=== PATIENT | female | born 1935 | race Caucasian/White ===

== ENCOUNTER 2021-02-24 23:48 | Inpatient (IN) | payer OTHER ==
[~2021-02-24] VITALS: Ht 160 cm; Wt 71.0 kg
[~2021-02-24 23:48] MED LIST: BENAZEPRIL HCL40 MG PO; CEPHALEXIN250 MG PO; ELIQUIS5 MG PO; EZETIMIBE10 MG PO; FEOSOL325 M1 PO; LOVENOX120 MG/0.8 SC; PANTOPRAZOLE SO40 MG PO; PROBIOTIC1 EAC1 PO; TURMERIC500 M1 PO; VITAMIN E1000 UNI2 PO; ZETIA10 MG PO
[2021-02-25] MEDS ORDERED: ASPIRIN EC81 MG PO (00:32)
[2021-02-25] MEDS ORDERED: VIT D3 PO (00:34)
[2021-02-25] MEDS ORDERED: VITAMIN C PO (00:35)
[2021-02-25 06:43] LABS: BASOPHIL 0.4 % (0-2); HCT 36.5 % (37.0-47.0); HGB 11.5 g/dl (12.5-16.0); LYMPHOCYTE 34.7 % (15-48); MCH 27.7 pg (25.0-31.0); MCHC 31.5 g/dL (32.0-36.0); MONOCYTE 11.4 % (0-12); MPV 9.8 fL (6.0-9.5); NEUTROPHIL 51.1 % (41-80); NRBC 0; PLT 153 K/uL (150-400); RBC 4.15 M/uL (4.20-5.40); RDW 14.8 % (11.5-14.0); WBC 4.5 K/uL (4.0-10.5)
[2021-02-25 06:55] LABS: INR 1.12 (0.9-1.2); PROTHROMBIN TIME 13.8 SECONDS (11.8-13.4)
[2021-02-25 06:59] LABS: BILIRUBIN - TOTAL 0.8 mg/dL (0.2-1.0); BUN/CREAT RATIO (CALC) 12.5 RATIO; CREATININE 0.64 mg/dL (0.51-0.95); GLOBULIN (CALCULATION) 3.9 g/dL; MAGNESIUM 2.1 mg/dL (1.8-2.4); PHOSPHORUS 3.8 mg/dL (2.6-4.7); POTASSIUM 4.1 mmol/L (3.5-5.1); TOTAL PROTEIN 6.9 g/dL (6.4-8.2)
[2021-02-26 06:45] LABS: BASOPHIL 0.6 % (0-2); EOSINOPHIL 3.8 % (0-7); HCT 36.5 % (37.0-47.0); HGB 11.4 g/dl (12.5-16.0); LYMPHOCYTE 34.5 % (15-48); MCH 27.5 pg (25.0-31.0); MCHC 31.2 g/dL (32.0-36.0); MCV 88.2 fL (78.0-100.0); MONOCYTE 11.1 % (0-12); MPV 9.8 fL (6.0-9.5); NEUTROPHIL 49.2 % (41-80); NRBC 0; PLT 159 K/uL (150-400); RBC 4.14 M/uL (4.20-5.40); RDW 14.7 % (11.5-14.0)
[2021-02-26 07:06] LABS: ALBUMIN 3.1 g/dL (3.4-5.0); BILIRUBIN - TOTAL 0.7 mg/dL (0.2-1.0); BUN/CREAT RATIO (CALC) 16.2 RATIO; CREATININE 0.74 mg/dL (0.51-0.95); GLOBULIN (CALCULATION) 3.6 g/dL; POTASSIUM 4.1 mmol/L (3.5-5.1); TOTAL PROTEIN 6.7 g/dL (6.4-8.2)
[2021-02-26 07:14] LABS: PRO-BNP 1475 pg/mL (<450)
[2021-02-26 08:19] LABS: BILIRUBIN NEGATIVE (NEGATIVE); BLOOD NEGATIVE Ery/uL (NEGATIVE); CLARITY CLEAR (CLEAR); COLOR YELLOW (YELLOW); GLUCOSE (U) NORMAL (NORMAL); LEUKOCYTES NEGATIVE Leu/uL (NEGATIVE); NITRITE NEGATIVE (NEGATIVE); PROTEIN NEGATIVE (NEGATIVE); SPECIFIC GRAVITY 1.025 (1.001-1.030); UROBILINOGEN 0.2 mg/dL (0.2-1.0)
[2021-02-28 06:52] LABS: HCT 35.4 % (37.0-47.0); HGB 11.1 g/dl (12.5-16.0); MCH 27.8 pg (25.0-31.0); MCHC 31.4 g/dL (32.0-36.0); MCV 88.5 fL (78.0-100.0); RDW 14.3 % (11.5-14.0); WBC 8.5 K/uL (4.0-10.5)
[2021-02-28] MEDS ORDERED: DULCOLAX5 MG PO (08:47)
--- NOTE | 2021-02-28 15:06 | NUR ---
MET WITH PT, HER DAUGHTER AND . THEY DO NOT WANT THE PT TO GO TO A SKILLED FACILITY AND THEY WANT KORT TO HOME. THE DAUGHTER STATED THAT THEY WOULD HAVE 24 HOUR CAREGIVERS WITH THE PT.
--- NOTE | 2021-03-01 12:20 | NUR ---
PER DR. DINH AND ABRIL WITH THERAPY. THEY ARE STRONGLY RECOMMENDING THAT PT. GO TO A SKILLED FACILITY. DAUGHTER, LINWOOD, WOULD LIKE [facility] OR [facility]. [facility] DOES NOT HAVE ANY BED AVAILIBILITY. [facility] HAS NOT RESPONDED. REFERRAL SENT TO [facility].
--- NOTE | 2021-03-02 10:48 | NUR ---
[facility] HAS ACCEPTED PT. A NEW COVID SWAB HAS BEEN SENT TO THE LAB. PT SON'S PHONE NUMBER WAS GIVEN DIANA AT [facility] SHE COULD NOT REACH DAUGHTER. ADVISED HER NURSE, [email or web address].
--- NOTE | 2021-03-02 12:53 | NUR ---
REPORT CAN BE GIVEN TO [phone] AND FAX D/C TO [phone] OR [phone].
[2021-03-02] MEDS ORDERED: NORCO 5-325 TA1 EACH PO (14:04)
--- NOTE | 2021-03-02 18:20 | NUR ---
0730 PT WAS GIVEN 2 NORCO FOR PAIN 1100 PT DAUGHTER COMES TO ROOM AND REPORTS THAT PT IS MORE LETHARGIC THAN USUAL AND REQUEST NARCAN PT WAS GIVEN 0.1MG OF NARCAN IVP AND BECAME MORE AROUSABLE BUT STILL DROWSY
== END 2021-03-02 16:45 | DRG 522 ==
LOC: FMS 23:48
PROVIDERS: Allergy & Immunology Allergy; Nurse Practitioner; ADMIT Orthopaedic Surgery
PROC: 0SRB0JA Replacement of Left Hip Joint with Synthetic Substitute, Uncemented, Open Approach (ICD-10-PCS; principal; 2021-02-27 08:00)
DX: S72.012A Unspecified intracapsular fracture of left femur, initial encounter for closed fracture (principal); F05 Delirium due to known physiological condition; I10 Essential (primary) hypertension; Z20.822 Contact with and (suspected) exposure to COVID-19; I35.0 Nonrheumatic aortic (valve) stenosis; I48.0 Paroxysmal atrial fibrillation; K74.60 Unspecified cirrhosis of liver; Z79.82 Long term (current) use of aspirin; Z79.01 Long term (current) use of anticoagulants; Z79.899 Other long term (current) drug therapy; Z90.710 Acquired absence of both cervix and uterus; Z90.49 Acquired absence of other specified parts of digestive tract; Z90.89 Acquired absence of other organs; Z98.890 Other specified postprocedural states; Z86.16 Personal history of COVID-19; Z88.8 Allergy status to other drugs, medicaments and biological substances; Z86.73 Personal history of transient ischemic attack (TIA), and cerebral infarction without residual deficits; W19.XXXA Unspecified fall, initial encounter
CPT/HCPCS: 36415; 71045; 72192; 73501; 76000; 80053; 81003; 83735; 83880; 84100; 84484; 85025; 85610; 85730; 93005; 94010; 94760; 97110; 97162; 97166; 97530-GP; 97535; C1776; J0171; J0697; J1100; J1885; J2270; J2310; J2405; J2704; J2795; J3010; J7120; U0002

== ENCOUNTER 2021-05-19 10:11 | Emergency (ER) | payer OTHER ==
[~2021-05-19 10:11] MED LIST changes: +ASPIRIN EC81 MG PO; +DULCOLAX5 MG PO; +NORCO 5-325 TA1 EACH PO; +VIT D3 PO; +VITAMIN C PO
[2021-05-19 11:39] LABS: BASOPHIL 0.2 % (0-2); EOSINOPHIL 0.1 % (0-7); HCT 33.2 % (37.0-47.0); HGB 10.3 g/dl (12.5-16.0); LYMPHOCYTE 15.3 % (15-48); MCH 25.6 pg (25.0-31.0); MCV 82.4 fL (78.0-100.0); MONOCYTE 11.1 % (0-12); MPV 10.7 fL (6.0-9.5); NEUTROPHIL 72.8 % (41-80); NRBC 0; PLT 188 K/uL (150-400); RBC 4.03 M/uL (4.20-5.40); RDW 17.2 % (11.5-14.0); WBC 8.1 K/uL (4.0-10.5)
[2021-05-19 11:50] LABS: ALBUMIN 2.9 g/dL (3.4-5.0); BILIRUBIN - TOTAL 0.8 mg/dL (0.2-1.0); BUN/CREAT RATIO (CALC) 14.1 RATIO; CREATININE 0.71 mg/dL (0.51-0.95); POTASSIUM 3.6 mmol/L (3.5-5.1); TOTAL PROTEIN 6.9 g/dL (6.4-8.2)
[2021-05-19 11:52] LABS: BILIRUBIN NEGATIVE (NEGATIVE); BLOOD NEGATIVE Ery/uL (NEGATIVE); CLARITY CLEAR (CLEAR); COLOR YELLOW (YELLOW); GLUCOSE (U) NORMAL (NORMAL); LEUKOCYTES TRACE Leu/uL (NEGATIVE); NITRITE NEGATIVE (NEGATIVE); PROTEIN NEGATIVE (NEGATIVE); UROBILINOGEN 0.2 mg/dL (0.2-1.0)
[2021-05-19 12:00] LABS: LACTIC ACID 2.9 mmol/L (0.4-1.9)
[2021-05-19 12:21] LABS: BACTERIA 2+
[2021-05-19 12:24] LABS: SQUAMOUS EPITHELIAL CELLS 20-50
[2021-05-19 12:27] LABS: CORONAVIRUS 2019 SARS-COV-2 NEGATIVE (NEGATIVE); INFLUENZA A NAA NEGATIVE (NEGATIVE)
[2021-05-19 16:34] LABS: C-REACTIVE PROTEIN 4.2 mg/dL (<=0.90)
--- NOTE | 2021-05-19 16:39 | NUR ---
PATIENT WAS SCHEDULED FOR OUTPATIENT PICC PLACEMENT, BUT ARRIVED TO THE ER AFTER A FALL AT HOME. AFTER EVALUATION IN THE ER THE PATIENT WAS DEEMED SAFE TO PROCEED WITH PICC PLACEMENT. DISCUSSED THE PROCEDURE AND RISKS OF PICC PLACEMENT WITH THE PATIENT AND DAUGHTER. BOTH VERBALIZED UNDERSTANDING. THE PATIENT PROVIDED INFORMED CONSENT. SHE WAS POSITIONED FOR RIGHT UPPER ARM PLACEMENT. A TOURNIQUET WAS APPLIED AND THE VEIN FOR ACCESS WAS VISUAALIZED VIA ULTRASOUND AND THE PLANNED INSERTION SITE WAS MARKED. THE TOURNIQUET WAS RELEASED AND SUPPLIES WERE SET UP IN STERILE FASHION. THE TOURNIQUET WAS RE-APPLIED AND THE SITE WAS CLEANED WITH CHLOROPREP. A STERILE DRAPE WAS PLACED OVER THE INSERTION SITE. A STERILE PROBE COVER WAS PLACED OVER THE ULTRASOUND PROBE. A 1.5 CM NEEDLE GUIDE WAS ATTACHED TO THE PROBE AND INTRODUCER NEEDLE WAS INSERTED INTO THE GUIDE. THE PROBE WAS STABILIZED OVER THE SITE AND LIDOCAINE WAS INJECTED SUBCUTANEOUSLY AT THE SITE. THE INTRODUCER NEEDLE WAS ADVANCED AND BLOOD RETURN WAS NOTED. THE GUIDEWIRE WAS EASILY ADVANCED THROUGH THE INTRODUCER NEEDLE AND THE NEEDLE WAS REMOVED. THE TOURNIQUET WAS RELEASED. THE SHEATH WAS THREADED OVER THE GUIDEWIRE AND ADVANCED INTO THE VEIN. THE GUIDEWIRE WAS REMOVED. THE PICC HAD BEEN FLUSHED AND WAS CUT AT 43 CM. THE SHERLOCK SYSTEM WAS CALIBRATED AND THE PICC WAS ADVANCED INTO PROPER POSITION WITHOUTH DIFFICULTY. BLOOD WAS ASPIRATED FROM THE LINE AND THE LINE WAS EASILY FLUSHED. THE STYLET WAS REMOVED. THE STAT LOCK WAS ATTACHED TO THE PICC AND THE INSERTION SITE WAS 0 CM. A STERILE DRESSING WAS APPLIED. A SCANT AMOUNT OF OOZING WAS NOTED AT THE INSERTION SITE. OTHERWISE, THERE WERE NO IMMEDIATE COMPLICATIONS NOTED AT THE SITE AND THE PATIENT TOLERATED THE PROCEDURE WELL. AN XRAY WAS ORDERED TO CHECK PLACEMENT AND IT WAS RECOMMENDED THAT THE LINE BE RETRACTED 4 CM AND A REPEAT XRAY BE ORDERED. THE LINE WAS RETRACTED AND THE XRAY WAS ORDERED. THE LINE WAS IN PROPER PLACEMENT AT THIS TIME. A NEW STERILE DRESSING WAS APPLIED TO THE SITE AFTER CLEANING THE SITE WITH CHOLOROPREP AND RE-APPLYING A STAT LOCK. THE PATIENT WAS DISCHARGED HOME AT THIS TIME.
== END 2021-05-19 15:57 | disposition home or self-care (01) ==
LOC: FER 10:11
PROVIDERS: Internal Medicine
DX: T81.49XA Infection following a procedure, other surgical site, initial encounter (principal); L08.9 Local infection of the skin and subcutaneous tissue, unspecified; N39.0 Urinary tract infection, site not specified; Z20.822 Contact with and (suspected) exposure to COVID-19
CPT/HCPCS: 36415; 71045; 73502; 80053; 81001; 82550; 83605; 84145; 85025; 86140; 87040; J3370; J7050; U0002